=== PATIENT | male | born 1935 | race African-American/Black ===

== ENCOUNTER 2018-05-04 17:45 | Emergency (ER) | payer OTHER ==
[~2018-05-04] VITALS: Ht 185.4 cm; Wt 82.0 kg
[~2018-05-04 17:45] MED LIST: AMLO10TA80 PO; ASPI-1159 PO; ATOR-2 PO; CLOP75TA16 PO; FAMO40TA7 PO; LISI40TA4 PO; METO-539 PO; ZET10 PO
[2018-05-04 20:57] LABS: EOSINOPHILS % 0.8 % (0.0-5.0); HEMATOCRIT. 43.6 % (42.0-52.0); HEMOGLOBIN. 14.6 g/dL (14.0-18.0); LYMPHOCYTES % 10.3 % (20.0-50.0); MEAN CORPUSCULAR HEMOGLOBIN 33.3 pg (28.0-32.0); MEAN CORPUSCULAR VOLUME 99.3 fL (80.0-94.0); MEAN PLATELET VOLUME 8.6 fl (7.4-10.4); MONOCYTES % 12.9 % (2.0-8.0); PLATELET 242 x1000/uL (130-400); RED BLOOD CELL COUNT 4.39 mill/uL (4.7-6.1); RED CELL DISTRIBUTION WIDTH 14.2 % (11.6-14.6)
[2018-05-04 21:03] LABS: INR 1.2; PARTIAL THROMBOPLASTIN TIME 25.8 sec (23.4-31.0); PROTHROMBIN TIME 12.2 sec (9.1-11.1)
[2018-05-04 21:06] LABS: CHLORIDE 109 mEq/L (98-107)
[2018-05-04 21:12] LABS: CREATINE KINASE 151 IU/L (39-308); CREATINE KINASE MB FRACTION 4.8 ng/mL (0.5-3.6)
[2018-05-04] MEDS ORDERED: TRAMADOL 50MG TABLET PO ONE (22:00)
[2018-05-05 00:56] LABS: CLARITY URINE CLOUDY (CLEAR); COLOR URINE DARK YELLOW (YELLOW); KETONES URINE NEGATIVE (NEGATIVE); LEUKOCYTE ESTERASE URINE NEGATIVE (NEGATIVE); NITRITE URINE NEGATIVE (NEGATIVE); OCCULT BLOOD URINE 2+ (NEGATIVE); PROTEIN URINE 4+ (NEGATIVE); SPECIFIC GRAVITY URINE 1.026 (1.005-1.030)
[2018-05-05 03:27] VITALS: BP 169/89
== END 2018-05-05 04:04 | disposition short-term general hospital (02) ==
LOC: ER 17:55
DX: M25.551 Pain in right hip (principal); I10 Essential (primary) hypertension; R10.30 Lower abdominal pain, unspecified; R10.2 Pelvic and perineal pain; I71.4 Abdominal aortic aneurysm, without rupture; E78.5 Hyperlipidemia, unspecified; F03.90 Unspecified dementia, unspecified severity, without behavioral disturbance, psychotic disturbance, mood disturbance, and anxiety; E11.9 Type 2 diabetes mellitus without complications; I51.9 Heart disease, unspecified; Z86.73 Personal history of transient ischemic attack (TIA), and cerebral infarction without residual deficits; Z79.899 Other long term (current) drug therapy; W18.39XA Other fall on same level, initial encounter; Y93.89 Activity, other specified; Y92.89 Other specified places as the place of occurrence of the external cause; Y99.8 Other external cause status
CPT/HCPCS: 36415; 71045; 74177; 82550; 82553; 83880; 84484; 93005; 99285; A4315